=== PATIENT | male | born 1960 | race Caucasian/White ===

== ENCOUNTER → 2017-08-23 | Outpatient (CLI) | payer BC, OTHER ==
[~2017-08-23] VITALS: Ht 190.5 cm; Wt 124.7 kg
[~2017-08-23] MED LIST: ASA5UEC PO; ASPIR 8181 M1 PO; BENICAR20 MG PO; LANOXIN 0.250.25 M1 PO; LIPITOR20 MG PO; PROSCAR 5MG TABL5 MG PO; TOPROL XL200 MG PO; XARELTO20 MG PO
--- NOTE | ~2017-08-23 | CATHLAB ---
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 A PINNACLE 4FR Sheath #[id number] sheath was inserted into the RFA^. Coronary angiography was performed using coronary diagnostic catheters. The right coronary system was accessed and visualized with a JR4 catheter. The left coronary system was accessed and visualized with a JL4 catheter. The left ventricle was accessed and visualized with a PIGTAIL catheter. Left ventricular/Aortic Valve gradient assessed via catheter pullback. Left ventriculogram was performed in 30 degree projection. Hemostasis was obtained with manual pressure following sheath removal without any complications. The patient tolerated the procedure well and there were no complications associated with the procedure. There was no hematoma. Intraoperative Conscious Sedation Sedation start time: Case end Time: 10.56 Fentanyl 50 mcg Versed 1.5 mg Fluoro Time: 3.60 minutes [facility] [address] [place] [address] INVASIVE PROCEDURE REPORT Name: MARCIE CHRISTIAN Room #: [facility]#: [id number] Admission: 08/23/17 Attend Phys: Bora Talavera MD Discharge: Date of : 58 Date of Service: 08/23/17 1614 Report #: [id number] Dose: DAP 7128.78 cGycm2 797 mGy Contrast Type and Amount: Omnipaque 96 ml Coronary Angiography The patient's coronary anatomy is right dominant. Diagnostic Cath Left Main Patent vessel, no flow limiting lesions. LAD Moderate size caliber vessel, traveling down the anterior wall and wrapping around the apex. There were no flow-limiting lesions. There is mild disease in the mid segment, less than 20%. Diagonal 1 Patent vessel, with no flow-limiting lesions. Circumflex Supplies one moderate size OM vessel. OM1 Patent vessel, with no flow-limiting lesions. Right Coronary Dominant vessel, with no flow-limiting lesions. R PDA Patent vessel, with no flow-limiting lesions. Left Ventriculography The left ventricle is normal in size with normal contractility. The left ventricular ejection fraction is estimated to be >55%. Hemodynamics The aortic pressure is 153/105 mmHg with a mean of 124 mmHg. The left ventricular pressure is 153/15 mmHg with a mean of mmHg. The left ventricular end diastolic pressure is 28 mmHg. There was no gradient across the aortic valve upon pullback. Pullback from the left ventricle to the aorta revealed no gradient across the aortic valve. Conclusion 1. Mild disease in the mid LAD segment. 2. Normal LV systolic function. 3. Right dominant system. 4. Recommend risk factor management. <ELECTRONICALLY SIGNED> By: Bora Talavera MD 08/23/17 1614 1614 1614 Bora Talavera MD /INF
[2017-08-23 08:32] VITALS: BP 153/117
[2017-08-23 08:53] LABS: HEMATOCRIT 52.3 % (42.0-52.0); HEMOGLOBIN 17.7 gm/dL (14.0-18.0); MCH 30.1 pg (26.0-34.0); MCHC 33.9 g/dL (28.0-37.0); MCV 88.7 fL (80.0-100.0); RBC 5.89 mil/uL (4.50-6.00); RDW 14.3 % (10.5-14.5); WBC 8.3 thou/uL (4.0-11.0)
[2017-08-23 09:06] LABS: CALCIUM 8.9 mg/dL (8.5-10.1); CREATININE 1.1 mg/dL (0.7-1.3); POTASSIUM 4.1 mmol/L (3.5-5.1)
== END | disposition home or self-care (01) ==
LOC: CATH 07:25
PROVIDERS: Internal Medicine Cardiovascular Disease
DX: I25.10 Atherosclerotic heart disease of native coronary artery without angina pectoris (principal); E78.00 Pure hypercholesterolemia, unspecified; I10 Essential (primary) hypertension; I48.91 Unspecified atrial fibrillation; I48.92 Unspecified atrial flutter; E11.9 Type 2 diabetes mellitus without complications; Z90.49 Acquired absence of other specified parts of digestive tract; E66.9 Obesity, unspecified

== ENCOUNTER → 2020-04-13 | Outpatient (CLI) | payer BC, OTHER | LOC: SJCVCIMAG 08:13 | PROVIDERS: ATTEND Internal Medicine Cardiovascular Disease | DX: I08.0 Rheumatic disorders of both mitral and aortic valves (principal); I48.91 Unspecified atrial fibrillation ==